=== PATIENT | male | born 1995 | race Asian ===

== ENCOUNTER 2016-10-30 11:51 | Emergency (ER) | payer SELFPAY ==
[~2016-10-30] VITALS: Ht 177.8 cm; Wt 127.0 kg
[~2016-10-30 11:51] MED LIST: ASPI325T PO; BENZ100 PO; FLUT1SPR9; NAPR-576 PO; ZITH250T PO
[2016-10-30 11:56] VITALS: BP 135/82; PULSE 86; RESP 16; TEMP 98; O2SAT 99
[2016-10-30] MEDS ORDERED: IBUPROFEN 800 MG TAB PO ONE (13:00)
--- NOTE | 2016-10-30 13:13 | PD ---
HPI Chief Complaint: Fall Time Seen by Provider: 12:57 Travel History International Travel<30 days: No Contact w/Intl Traveler<30days: No Traveled to known affect area: No History of Present Illness HPI 21-year-old male presents to the emergency Department with complaint of right ankle pain after falling from approximately 5 feet landing on his feet, twisting his right ankle and then rolling onto the ground. He denies hitting his head or loss of consciousness. Denies neck pain or back pain. He has been ambulatory on the affected extremity since the fall. He denies paresthesias, loss of sensation to the affected extremity. Reports decreased range of motion of the ankle secondary to pain. Denies knee pain or hip pain. Denies other extremity pain. Denies chest pain, shortness of breath, abdominal pain, nausea , vomiting. Has taken Advil PM with some relief of symptoms. He said it helped him sleep. Pain is aggravated with ambulation, palpation, movement. Allergies to Keflex, rabbits, Zofran. Denies significant past medical history. No other modifying factors or associated signs and symptoms. PFSH Past Medical History Anxiety: Yes Developmental Delay: No Diminished Hearing: No Respiratory: Yes (HX OF BRONCHITIS) Immunizations Current: Yes Social History Alcohol Use: Yes (rarely) Tobacco Use: No Substance Use: No Allergies-Medications (Allergen,Severity, Reaction): Coded Allergies: Zofran (Verified Allergy, Mild, 10/30/16) Keflex (Verified Adverse Reaction, Severe, INTERNAL BLEEDING, 10/30/16) Uncoded Allergies: RABBIT (Allergy, Severe, THROAT SWELLS CLOSED, HIVES, 03/20/14) Reported Meds & Prescriptions Reported Meds & Active Scripts Active Ibuprofen 800 Mg Tab 800 Mg PO Q6HR PRN Naproxen 500 Mg Tab 500 Mg PO Q12HR PRN Zithromax Z-Jeremy (Azithromycin) 250 Mg Tab 250 Mg PO DIRECTED 5 Days 500 MG (2 TABLETS) PO ON DAY 1, THEN 250 MG (1 TABLET) PO ON DAYS 2 TO 5. Tessalon Perles (Benzonatate) 100 Mg Cap 100 Mg PO Q8 PRN Flonase Allergy Relief Ch (Fluticasone Propionate (Nasal)) 50 Mcg/Act Spr 1-2 [place] NA Q12HR PRN Reported Aspirin 325 Mg Tab (Aspirin) 325 Mg Tab 325 Mg PO Q6HR PRN Review of Systems Except as stated in HPI: all other systems reviewed are Neg Physical Exam Narrative GENERAL: Well-nourished, well-developed male patient, in no acute distress SKIN: Warm and dry. HEAD: Atraumatic. Normocephalic. No facial or scalp abrasions or lacerations noted. EYES: Pupils equal and round at 3 mm with brisk reaction. No scleral icterus. No injection or drainage. No raccoon eyes. ENT: Mucosa pink and moist. No erythema or exudates. No uvular edema. No uvular , palatal, or tonsillar deviation. Airway patent. Nares without nasal blood, purulent drainage or septal hematoma. No rhinorrhea. EARS: Bilateral pinnae and external canals appear within normal limits. Bilateral tympanic membranes without erythema, dullness, hemotympanum or perforation. No otorrhea. No nowak signs. NECK: Moving freely. Trachea midline. Active rotation of the neck greater than 45 left and right. No midline point tenderness on palpation of the cervical spine. No obvious deformities. CHEST: No retractions or use of accessory muscles. CARDIOVASCULAR: Regular rate and rhythm. No murmur appreciated. RESPIRATORY: No accessory muscle use. Clear to auscultation. Breath sounds equal bilaterally. GASTROINTESTINAL: Abdomen soft, non-tender, nondistended. Hepatic and splenic margins not palpable. Bowel sounds are active 4 quadrants. MUSCULOSKELETAL: Right ankle with point tenderness to the lateral malleolar zone; edematous and without erythema or ecchymosis; no obvious deformity; decreased range of motion; No tenderness on palpation to the head the fibula or knee; knee with full range of motion without erythema, edema, tenderness on palpation. Right lower extremity supple and non-tense with 2+ pupils and sensory intact. 3+ pedal pulses. No obvious deformities. No clubbing. No cyanosis. No edema. BACK: No midline Point tenderness on palpation of the lumbar or thoracic spine. No obvious deformities. Patient sitting up in bed at 90. NEUROLOGICAL: Awake and alert. Oriented 3. No obvious cranial nerve deficits. Motor grossly within normal limits. Normal speech. Moves all extremities. 5/5 strength to all extremities. Sensory intact. PSYCHIATRIC: Appropriate mood and affect; insight and judgment normal. Data Data Last Documented VS Vital Signs Date Time Temp Pulse Resp B/P Pulse Ox O2 Delivery O2 Flow Rate FiO2 10/30/16 11:56 98.0 86 16 135/82 99 Orders Ankle, Complete ([id number]) (10/30/16 12:50) Ice/Cold Pack (10/30/16 12:50) Ibuprofen (Motrin) (10/30/16 13:00) Crutches (10/30/16 14:35) Splint Or Brace Apply/Monitor (10/30/16 14:35) MDM Medical Decision Making Medical Screen Exam Complete: Yes Emergency Medical Condition: Yes Medical Record Reviewed: Yes Differential Diagnosis fall, Ankle fracture, ankle sprain Narrative Course 21-year-old male with right ankle injury after falling approximately 5 feet landing on his feet last night. Denies hitting his head or loss of consciousness. Denies nausea, vomiting. On physical exam the patient is without raccoon eyes, nowak signs, rhinorrhea, or hemotympanum. I do not suspect open or depressed skull fracture, and the patient has no signs of basilar skull fracture. [place] CT Head Injury Rule suggests a head CT is not necessary for this patient and clears the patient for head injury without imaging. Denies neck pain or back pain. [place] C-Spine Rule suggests the C- Spine can be cleared clinically of fracture, and imaging is not required. There is no midline point tenderness on palpation of the cervical spine. The patient is able to actively rotate the neck 45 left and right. The patient is sitting up in bed at 90. The patient is ambulatory. Ibuprofen ordered. Right ankle x-ray ordered. [id number]': Right ankle x-ray concludes Diffuse soft tissue prominence. No fracture. Crutches, ankle stirrup splint, Richard bandage provided for support. Ibuprofen prescribed for home. Instructed patient to follow up with orthopedics if symptoms persist greater than 7-10 days. Patient verbalizes understanding and agreement with treatment plan. Patient is medically cleared and stable for discharge. Discussed reasons to return to the emergency department. Instructed patient to follow up with primary care provider. Patient agrees with treatment plan. The patients vital signs are stable and the patient is stable for outpatient follow-up and treatment. Patient discharged home, stable and in no acute distress. Diagnosis Primary Impression: Right ankle sprain Qualified Code: S93.401A - Sprain of right ankle, unspecified ligament, initial encounter Referrals: Primary Care Physician Patient Instructions: Ankle Sprain (ED), Ankle Sprain Exercises (GEN), Crutch Instructions (ED), General Instructions Departure Forms: Tests/Procedures, Work Release Enter return to work date: Nov 06, 2016 Special Instructions: Patient has no restrictions upon returning back to work Additional Instructions: Tylenol or ibuprofen as directed and as needed for pain and inflammation Rest, ice, compress, and elevate extremity to decrease pain and inflammation Ankle Brace for support Crutches for support Avoid aggravating activity; increase activity as tolerated Follow-up with primary care provider Return to the emergency department immediately with worsening of symptoms Med/Other Pt SpecificInfo: Prescription(s) given Scripts Ibuprofen 800 Mg [id number] Mg PO Q6HR PRN (PAIN) #30 TAB Ref 0 Prov:Minerva Hendrix 10/30/16 Disposition: 01 DISCHARGE HOME Condition: Stable Minerva Hendrix Oct 30, 2016 13:13
--- NOTE | 2016-10-30 14:03 | RADRPT ---
EXAM DATE/TIME: 10/30/2016 13:09 [facility] COMPARISON: No previous studies available for comparison. INDICATIONS : Patient fell off a curb yesterday. MEDICAL HISTORY : None. SURGICAL HISTORY : None. ENCOUNTER: Initial ACUITY: 2 days PAIN SCORE: 10/10 LOCATION: Right Ankle. FINDINGS: Three view exam was performed of the right ankle. The bony structures are in normal alignment. No e vidence of fracture or dislocation. Diffuse soft tissue prominence. The ankle mortise is intact. No radiopaque foreign bodies are seen. Bony mineralization is normal. CONCLUSION: Diffuse soft tissue prominence. No fracture. Gavin Shea MD on October 30, 2016 at 14:01 Board Certified Radiologist. This report was verified electronically.
[2016-10-30] MEDS ORDERED: IBUP800T23 PO (14:35)
== END 2016-10-30 15:24 | disposition home or self-care (01) ==
LOC: NETRI 11:51
DX: S93.401A Sprain of unspecified ligament of right ankle, initial encounter (principal); W17.89XA Other fall from one level to another, initial encounter
CPT/HCPCS: 73610; 99283; E0113; L1906

== ENCOUNTER 2017-06-08 18:37 | Emergency (ER) | payer SELFPAY ==
[~2017-06-08] VITALS: Ht 182.9 cm; Wt 140.0 kg
[~2017-06-08 18:37] MED LIST changes: +IBUP1TAB7 PO
[2017-06-08 18:40] VITALS: BP 129/71; PULSE 90; RESP 15; TEMP 98; O2SAT 96
[2017-06-08] MEDS ORDERED: IBUP1TAB7 PO (19:52)
[2017-06-08] MEDS ORDERED: CYCL10TA PO (19:52)
--- NOTE | 2017-06-08 19:53 | PD ---
HPI Chief Complaint: Back/ Neck Pain or Injury Time Seen by Provider: 19:44 Travel History International Travel<30 days: No Contact w/Intl Traveler<30days: No Traveled to known affect area: No History of Present Illness HPI Patient is a 22-year-old male presenting to the emergency department for evaluation of right lower back pain. Patient states the pain started an hour and half ago, he states he was sitting at his desk eating and he felt his back pull. He denies any injury or trauma, he denies any previous back injury. He denies any dysuria, frequency, flank or abdominal pain. Patient rates his pain is 6 out of 10 and states it's worse when he attempts to lay down. He denies any numbness, weakness in his extremities, no bladder or bowel incontinence, no saddle paresthesia. Patient has not taken any medication to alleviate the pain. PFSH Past Medical History Anxiety: Yes Developmental Delay: No Diminished Hearing: No Respiratory: Yes (HX OF BRONCHITIS) Immunizations Current: Yes Tetanus Vaccination: Unknown Influenza Vaccination: No Past Surgical History Surgical History: No Previous Surgery Social History Alcohol Use: Yes (rarely) Tobacco Use: No Substance Use: No Allergies-Medications (Allergen,Severity, Reaction): Coded Allergies: ondansetron (Unverified Allergy, Mild, 06/08/17) cephalexin (Unverified Adverse Reaction, Severe, INTERNAL BLEEDING, ) Uncoded Allergies: RABBIT (Allergy, Severe, THROAT SWELLS CLOSED, HIVES, 03/20/14) Reported Meds & Prescriptions Reported Meds & Active Scripts Active No Active Prescriptions or Reported Medications Review of Systems Except as stated in HPI: all other systems reviewed are Neg Musculoskeletal: Positive: Myalgias, Cramping Physical Exam Narrative GENERAL: Overweight, well-developed, alert male. Resting in no acute distress. SKIN: Warm and dry. HEAD: Atraumatic. Normocephalic. EYES: Pupils equal and round. No scleral icterus. No injection or drainage. ENT: No nasal bleeding or discharge. Mucous membranes pink and moist. NECK: Trachea midline. No JVD. CARDIOVASCULAR: Regular rate and rhythm. RESPIRATORY: No accessory muscle use. Clear to auscultation. Breath sounds equal bilaterally. GASTROINTESTINAL: Abdomen soft, non-tender, nondistended. Hepatic and splenic margins not palpable. MUSCULOSKELETAL: Extremities without clubbing, cyanosis, or edema. No obvious deformities. Tenderness to palpation paraspinal musculature in the right lumbar region. No spinal tenderness or step-off noted. No CVAT bilaterally. NEUROLOGICAL: Awake and alert. No obvious cranial nerve deficits. Motor grossly within normal limits. Five out of 5 muscle strength in the arms and legs. Normal speech. PSYCHIATRIC: Appropriate mood and affect; insight and judgment normal. Data Data Last Documented VS Vital Signs Date Time Temp Pulse Resp B/P (MAP) Pulse Ox O2 Delivery O2 Flow Rate FiO2 06/08/17 18:40 98.0 90 15 129/71 (90) 96 [facility] Medical Decision Making Medical Screen Exam Complete: Yes Emergency Medical Condition: Yes Interpretation(s) Vital Signs Date Time Temp Pulse Resp B/P (MAP) Pulse Ox O2 Delivery O2 Flow Rate FiO2 06/08/17 18:40 98.0 90 15 129/71 (90) 96 Differential Diagnosis Strain versus sprain versus spasm versus discogenic pain versus other Narrative Course Patient presented with an hour and a half of right lower back pain with no preceding injury or trauma. Patient is neurologically intact with no focal deficits noted on exam. Patient is ambulatory emergency department. Patient's vital signs are stable. At this point patient will be treated conservatively. He was medications as directed, apply warm heat to the effected area, avoid exacerbating activities, avoid bed rest. He was encouraged to follow-up with her primary doctor return to emergency department for any new or worsening symptoms. Patient verbalized understanding of instructions. Patient is stable for discharge. Diagnosis Primary Impression: Muscle strain Additional Impression: Muscle spasm Referrals: [facility] Primary Care Physician Patient Instructions: General Instructions, Muscle Spasm (ED), Muscle Strain ( ED) Additional Instructions: Apply warm heat to the affected area Continue range of motion exercises Avoid bed rest, avoid exacerbating activities Take medications as needed and as directed Follow-up with your primary doctor Return to emergency department for any new or worsening symptoms Flexeril may make you drowsy, do not drive or operate machinery until you know how you react to this medication Take ibuprofen with a snack or small meal to avoid stomach upset Med/Other Pt SpecificInfo: Prescription(s) given Scripts Cyclobenzaprine (Flexeril) 10 Mg Tab 10 MG PO TID Y for MUSCLE SPASM for 7 Days, #21 TAB 0 Refills Prov: Christina Victor 06/08/17 Ibuprofen (Ibuprofen) 800 Mg Tab 800 MG PO Q6HR Y for PAIN, #40 TAB 0 Refills Prov: Christina Victor 06/08/17 Disposition: 01 DISCHARGE HOME Condition: Stable Christina Victor Jun 08, 2017 19:53
== END 2017-06-08 20:03 | disposition home or self-care (01) ==
LOC: NEPK 18:37
DX: S39.012A Strain of muscle, fascia and tendon of lower back, initial encounter (principal); M62.830 Muscle spasm of back; F41.9 Anxiety disorder, unspecified; X50.9XXA Other and unspecified overexertion or strenuous movements or postures, initial encounter; Z88.8 Allergy status to other drugs, medicaments and biological substances
CPT/HCPCS: 99283

== ENCOUNTER 2017-07-23 20:35 | Emergency (ER) | payer SELFPAY ==
[~2017-07-23 20:35] MED LIST changes: -ASPI325T PO; -BENZ100 PO; +CYCL10TA PO; -FLUT1SPR9; -NAPR-576 PO; -ZITH250T PO
[2017-07-23 20:38] VITALS: BP 139/87; PULSE 79; RESP 16; TEMP 98.4; O2SAT 98
[2017-07-23 21:00] VITALS: BP 158/93; PULSE 81; RESP 16; O2SAT 99
[2017-07-23] MEDS ORDERED: SODIUM CHLORIDE 0.9% FLUSH 10 ML FLUSH IVF PRN (21:15)
--- NOTE | 2017-07-23 21:21 | PD ---
HPI Chief Complaint: GI Complaint Time Seen by Provider: 21:07 Travel History International Travel<30 days: No Contact w/Intl Traveler<30days: No Traveled to known affect area: No History of Present Illness HPI 22-year-old male presents to the emergency department by private transportation for complaint of rectal bleeding. According the patient just prior to arrival to the emergency department he had urge to have a bowel movement and passed a large amount of blood per rectum reportedly. Patient been seen in the past for rectal bleeding. Patient states that he's had rectal bleeding related to Keflex in the past. Patient denies any recent antibiotic use and is currently taking no medications. Patient states he did use a [employer] powder 2 days ago for a migraine headache but does not use any nonsteroidals or aspirin on a routine basis. Patient has no history of bleeding disorder. Patient's had no injury. Patient denies fever or chills. No abdominal pain. Patient's had no near-syncope or syncope. No shortness of breath or sweats. No recurrent blood per rectum. Patient rates overall discomfort at this time to over 10 intensity. PFSH Past Medical History Narrative Medical Anxiety bronchitis imitations current intermittent rectal bleeding/constipation ; alcohol use; Nursing notes reviewed Anxiety: Yes Developmental Delay: No Diminished Hearing: No Respiratory: Yes (HX OF BRONCHITIS) Immunizations Current: Yes Tetanus Vaccination: < 5 Years Influenza Vaccination: No Past Surgical History Surgical History: No Previous Surgery Social History Alcohol Use: Yes (few times a week) Tobacco Use: No Substance Use: No Allergies-Medications (Allergen,Severity, Reaction): Coded Allergies: ondansetron (Unverified Allergy, Mild, 06/08/17) cephalexin (Unverified Adverse Reaction, Severe, INTERNAL BLEEDING, ) Uncoded Allergies: RABBIT (Allergy, Severe, THROAT SWELLS CLOSED, HIVES, 03/20/14) Reported Meds & Prescriptions Reported Meds & Active Scripts Active Review of Systems Except as stated in HPI: all other systems reviewed are Neg Physical Exam Narrative GENERAL: Well-developed well-nourished male in no acute distress no respiratory distress, wearing a face-mask because he is fearful of being exposed to terms in the hospital SKIN: Warm and dry. HEAD: Normocephalic. EYES: No scleral icterus. No injection or drainage. NECK: Supple, trachea midline. No JVD or lymphadenopathy. CARDIOVASCULAR: Regular rate and rhythm without murmurs, gallops, or rubs. RESPIRATORY: Breath sounds equal bilaterally. No accessory muscle use. GASTROINTESTINAL: Abdomen soft, non-tender, nondistended. Rectal exam: Normal external exam no fissure no prolapsed hemorrhoids normal sphincter tone brown stool on exam glove no palpable mass Hemoccult negative MUSCULOSKELETAL: No cyanosis, or edema. BACK: Nontender without obvious deformity. No CVA tenderness. Data Data Last Documented VS Vital Signs Date Time Temp Pulse Resp B/P (MAP) Pulse Ox O2 Delivery O2 Flow Rate FiO2 07/23/17 21:29 67 125/58 (80) 68 116/62 (80) 77 117/59 (78) 07/23/17 21:00 16 99 Room Air 07/23/17 20:38 98.4 Orders Orders Complete Blood Count With Diff (07/23/17 21:12) Lipase (07/23/17 21:12) Prothrombin Time / Inr (Pt) (07/23/17 21:12) Act Partial Throm Time (Ptt) (07/23/17 21:12) Urinalysis - C+S If Indicated (07/23/17 21:12) Type And Screen (07/23/17 21:12) Ecg Monitoring (07/23/17 21:12) Iv Access Insert/Monitor (07/23/17 21:12) Sodium Chloride 0.9% Flush (Ns Flush) (07/23/17 21:15) Orthostatic Vital Signs (07/23/17 21:12) Basic Metabolic Panel (Bmp) (07/23/17 21:12) Labs Laboratory Tests Test 07/23/17 21:20 07/23/17 22:00 White Blood Count 10.1 TH/MM3 Red Blood Count 5.15 MIL/MM3 Hemoglobin 14.7 GM/DL Hematocrit 42.3 % Mean Corpuscular Volume 82.2 FL Mean Corpuscular Hemoglobin 28.6 PG Mean Corpuscular Hemoglobin Concent 34.8 % Red Cell Distribution Width 12.5 % Platelet Count 292 TH/MM3 Mean Platelet Volume 9.4 FL Neutrophils (%) (Auto) 56.9 % Lymphocytes (%) (Auto) 32.9 % Monocytes (%) (Auto) 8.3 % Eosinophils (%) (Auto) 1.3 % Basophils (%) (Auto) 0.6 % Neutrophils # (Auto) 5.7 TH/MM3 Lymphocytes # (Auto) 3.3 TH/MM3 Monocytes # (Auto) 0.8 TH/MM3 Eosinophils # (Auto) 0.1 TH/MM3 Basophils # (Auto) 0.1 TH/MM3 CBC Comment DIFF FINAL Differential Comment Prothrombin Time 10.3 SEC Prothromb Time International Ratio 1.0 RATIO Activated Partial Thromboplast Time 27.8 SEC Blood Urea Nitrogen 14 MG/DL Creatinine 0.93 MG/DL Random Glucose 83 MG/DL Calcium Level 8.6 MG/DL Sodium Level 141 MEQ/L Potassium Level 4.0 MEQ/L Chloride Level 104 MEQ/L Carbon Dioxide Level 30.6 MEQ/L Anion Gap 6 MEQ/L Estimat Glomerular Filtration Rate 103 ML/MIN Lipase 111 U/L Urine Color YELLOW Urine Turbidity CLEAR Urine pH 7.0 Urine Specific [place] 1.027 Urine Protein NEG mg/dL Urine Glucose (UA) NEG mg/dL Urine Ketones NEG mg/dL Urine Occult Blood NEG Urine Nitrite NEG Urine Bilirubin NEG Urine Urobilinogen 4.0 MG/DL Urine Leukocyte Esterase NEG Urine RBC LESS THAN 1 /hpf Urine WBC 1 /hpf Microscopic Urinalysis Comment CULT NOT INDICATED MDM Medical Decision Making Medical Screen Exam Complete: Yes Emergency Medical Condition: Yes Medical Record Reviewed: Yes Interpretation(s) CBC & BMP Diagram 07/23/17 21:20 Calcium Level 8.6 Vital Signs Date Time Temp Pulse Resp B/P (MAP) Pulse Ox O2 Delivery O2 Flow Rate FiO2 07/23/17 21:29 67 125/58 (80) 68 116/62 (80) 77 117/59 (78) 07/23/17 21:00 81 16 158/93 (114) 99 Room Air 07/23/17 20:38 98.4 79 16 139/87 (104) 98 Room Air Differential Diagnosis rectal bleeding, fissure, internal hemorrhoids, colitis, diverticulitis, inflammatory bowel disease Narrative Course IV access obtained, specimens collected, orthostatic measures BP/HR No orthostatic variance from supine sitting to standing CBC is automated differential values in normal range; metabolic panel BUN to creatinine ratio less than 30 and otherwise values in normal range At 10:30 patient remains hemodynamically stable stable for outpatient management ; for rectal bleeding patient is encouraged to follow-up with paper plate machine tender Diagnosis Primary Impression: Rectal bleed Referrals: Senior Associate call for appointment Primary Care Physician 1 day Patient Instructions: General Instructions Additional Instructions: Increase fluid hydration Follow-up with paper plate machine tender Follow-up with primary care provider Return to the emergency department for any concerns or change in condition Do not use any nonsteroidal anti-inflammatory medication such as ibuprofen/Advil /Motrin or Naprosyn/Aleve/naproxen or aspirin products May take acetaminophen/Tylenol as needed for fever 100.4F or greater or for minor pain Med/Other Pt SpecificInfo: No Meds Exist/No RX given Scripts No Active Prescriptions or Reported Meds Disposition: 01 DISCHARGE HOME Condition: Stable Shelly Flanagan MD Jul 23, 2017 21:21
[2017-07-23 21:29] VITALS: BP_SYST 116; BP_SYST 117; BP_SYST 125; BP_DIAS 58; BP_DIAS 59; BP_DIAS 62
[2017-07-23 21:44] LABS: AUTOMATED NEUTROPHIL # 5.7 TH/MM3 (1.8-7.7); BASOPHIL # 0.1 TH/MM3 (0-0.2); BASOPHIL % 0.6 % (0.0-2.0); EOSINOPHIL # 0.1 TH/MM3 (0-0.4); EOSINOPHIL % 1.3 % (0.0-4.0); HEMATOCRIT 42.3 % (39.0-51.0); HEMOGLOBIN 14.7 GM/DL (13.0-17.0); LYMPH % 32.9 % (9.0-44.0); LYMPHOCYTE # 3.3 TH/MM3 (1.0-4.8); MEAN CELL VOLUME 82.2 FL (80.0-100.0); MEAN CORPUSCULAR HEMOGLOBIN 28.6 PG (27.0-34.0); MEAN CORPUSCULAR HGB CONC 34.8 % (32.0-36.0); MEAN PLATELET VOLUME 9.4 FL (7.0-11.0); MONO % 8.3 % (0.0-8.0); MONOCYTE # 0.8 TH/MM3 (0-0.9); NEUT % 56.9 % (16.0-70.0); PLATELET COUNT 292 TH/MM3 (150-450); RED BLOOD COUNT 5.15 MIL/MM3 (4.50-5.90); RED CELL DISTRIBUTION WIDTH 12.5 % (11.6-17.2); WHITE BLOOD COUNT 10.1 TH/MM3 (4.0-11.0)
[2017-07-23 21:51] LABS: PROTHROMBIN TIME - PATIENT 10.3 SEC (9.8-11.6)
[2017-07-23 22:06] LABS: BICARBONATE 30.6 MEQ/L (21.0-32.0); CALCIUM 8.6 MG/DL (8.5-10.1); CREATININE 0.93 MG/DL (0.60-1.30)
[2017-07-23 22:13] LABS: BILIRUBIN, URINE NEG (NEG); BLOOD, URINE NEG (NEG); GLUCOSE,URINE NEG (NEG); KETONE, URINE NEG (NEG); NITRITE,URINE NEG (NEG); URINE COLOR YELLOW (YELLW/STRAW); URINE LEUKOCYTE ESTERASE NEG (NEG)
== END 2017-07-23 22:49 | disposition home or self-care (01) ==
LOC: NEPC 20:35
DX: K62.5 Hemorrhage of anus and rectum (principal)
CPT/HCPCS: 80048; 81001; 83690; 85025; 85610; 85730; 86850; 86900; 86901; 99283